=== PATIENT | male | born 1985 | race Caucasian/White ===

== ENCOUNTER → 2020-03-01 | Outpatient (CLI) | payer OTHER | END | disposition home or self-care (01) | LOC: CVU 13:29 | PROVIDERS: ATTEND Orthopaedic Surgery | DX: R00.0 Tachycardia, unspecified (principal) | CPT/HCPCS: 93306 ==

== ENCOUNTER 2020-03-27 10:50 | Outpatient (CLI) | payer OTHER | END 2020-03-27 23:59 | disposition home or self-care (01) | LOC: STAR 10:50 | PROVIDERS: ATTEND Orthopaedic Surgery | DX: Z01.818 Encounter for other preprocedural examination (principal); R00.0 Tachycardia, unspecified | CPT/HCPCS: 93005 ==